=== PATIENT | male | born 1985 | race Caucasian/White ===

== ENCOUNTER 2021-09-09 13:55 | Emergency (ER) | payer OTHER, SELFPAY ==
[2021-09-09 13:58] VITALS: BP 128/74; PULSE 58; RESP 16; TEMP 36.7; O2SAT 98; BMI 24.9
--- NOTE | 2021-09-09 14:14 | ECG_ITS ---
APPROVED REPORT Exam: Resting ECG HR:46 bpm ECG Measurements Heart Rate 46 AXES RI 159 P 42 QRSd 89 QRS 37 QT 420 T 51 QTc [address] ELEVATION, PROBABLY EARLY REPOLARIZATION [ST ELEVATION WITH NORMALLY INFLECTED T-WAVE] BORDERLINE ECG UNCONFIRMED REPORT Electronically signed by : Tristan Pierre MD 09/10/2021 09:03:51
[2021-09-09 14:32] VITALS: BMI 24.9
[2021-09-09 14:44] LABS: Chloride 106 mmol/L (98-107); Potassium 4.5 mmoL/L (3.5-5.1); Sodium 141 mmol/L (136-145)
[2021-09-09 14:47] LABS: Blood Urea Nitrogen 9 mg/dl (9-20); Creatinine Clearance Estimated 140 mL/min (50-200); Estimated Glomerular Filt Rate 97 ml/min (>60); GFR (African American) 117 ML/MIN (>60)
[2021-09-09 14:48] LABS: Anion Gap 7.5 mEq/L (5-15); Calcium 9.5 mg/dl (8.4-10.2); Carbon Dioxide 32 mmol/L (22.0-30.0); Glucose 104 mg/dl (74-100)
--- NOTE | 2021-09-09 15:26 | HMH.EDGENADL ---
ED Disposition Clinical Impression: Abnormal laboratory test result Disposition: Home, Self-Care Condition on Discharge: Good Additional Instructions: Follow-up with primary care provider as needed Referrals: Iftikhar Varela MD [Primary Care Provider] - - Critical Care Critical Care Time: No Attestation: On 09/09/21, the high probability of a clinically significant, sudden or life threatening deterioration of the following system(s) required my full and direct attention, intervention and personal management. The time I documented below is in addition to time spent performing reported procedures but includes the following listed in this critical care notation. Medical Decision Making - Abdon Inquiry Pt receiving controlled substance: No Vital Signs: 09/09/21 13:58 Temperature 98.1 F Temperature Source Oral Pulse Rate [Right Radial] 58 L Respiratory Rate 16 Blood Pressure [Right Arm] 128/74 Blood Pressure Mean [Right Arm] 92 Blood Pressure Source [Right Arm] Automatic Cuff Blood Pressure Position [Right Arm] Sitting 02 Sat by Pulse Oximetry 98 Oxygen Delivery Method Room Air - Lab Data Lab Results 09/09/21 14:25: Sodium 141, Potassium 4.5, Chloride 106, Carbon Dioxide 32 H, Anion Gap 7.5, BUN 9, Creatinine 0.90, Estimated Creat Clear 140, Estimated GFR 97, Est GFR ( Amer) 117, Glucose 104 H, Calcium 9.5 Result diagrams: 09/09/21 14:25 - ECG Data Tracing #1 EKG interpreted by Manjeet Bender MD: Rhythm: sinus rated cardia Rate: 46 [place]: normal Ectopy: none Conduction: normal ST Segment Changes: Early repolarization T Wave Changes: none Q Waves: none No evidence of acute ischemia or injury General Adult HPI - General Chief complaint: Recheck/Abnormal Lab/Rx Stated complaint: elevated levels Time Seen by Provider: 09/09/21 15:26 Mode of Arrival: Ambulatory Limitations: No Limitations Description of Symptoms (Recalled from ER Triage Doc. by RN): pt reports had lab work done 2 days ago, states he was called today notifying of critically high potassium. States he was told to come to the ER. Pt reports feels normaly, no complaints, denies chest pain, SOA, dizziness, pain - History of Present Illness HPI narrative: Patient states that he had blood work drawn 2 days ago at methadone clinic. He was called today and told that his potassium level was high, to come to the emergency room for evaluation. The patient is asymptomatic. No history of chronic kidney disease. He is not on antihypertensives or diuretics. - Related Data Home Medications Medication Instructions Recorded Confirmed No Known Home Medications 05/12/19 05/12/19 Allergies Allergy/AdvReac Type Severity Reaction Status Date / Time SULFA (sulfonamide) Allergy Unknown Uncoded 04/24/17 14:46 [facility] History - Hepatitis A Screen Attestation statement:: This patient has been screened for Hepatitis A risk factors. I have reviewed the patient's past medical history: Yes - Social History Smoking Status: Current every day smoker Tobacco Type: cigarettes # Packs/Day (cigarettes): 1 Alcohol Intake: current Alcohol Intake Frequency:: holidays/special occasions only Substance Use Type: marijuana, crack/cocaine, heroin Occupational Status: unemployed ROS Obtained: Yes Systems reviewed as appropriate & no additional complaints - Constitutional Constitutional: Denies weakness - Cardiovascular Cardiovascular: Denies chest pain, Denies palpitations - Respiratory Respiratory: Denies shortness of breath - Gastrointestinal Gastrointestingal: Denies: abdominal pain, diarrhea, nausea, vomiting - Genitourinary Male Genitourinary: Denies difficulty urinating Physical Exam - General General appearance: alert, in no apparent distress - Head Head exam: atraumatic, normocephalic - Eye Eye exam: Present: normal appearance, EOMI - ENT ENT exam: Present: mucous membranes moist - Neck
[2021-09-09 16:02] VITALS: BP 118/70; PULSE 55; RESP 14; TEMP 36.7; O2SAT 99
== END 2021-09-09 16:02 | disposition home or self-care (01) ==
PROVIDERS: Emergency Provider Emergency Medicine; PCP Family Medicine
DX: R79.9 Abnormal finding of blood chemistry, unspecified (principal); E87.5 Hyperkalemia; Z88.2 Allergy status to sulfonamides; Z72.0 Tobacco use; F14.11 Cocaine abuse, in remission; F12.11 Cannabis abuse, in remission; F11.11 Opioid abuse, in remission
CPT/HCPCS: 80048; 93005; 99282

== ENCOUNTER 2023-05-21 10:12 | Emergency (ER) | payer OTHER, SELFPAY ==
[2023-05-21 10:12] VITALS: BP 123/80; PULSE 89; RESP 16; TEMP 36.5; O2SAT 97; BMI 24.5
--- NOTE | 2023-05-21 10:15 | PC.NURSE ---
PT REFUSES IV , OR ANY BLOOD DRAW . PT REQUEST SOMETHING TO DRINK TO SETTLE HIS STOMACH
--- NOTE | 2023-05-21 10:33 | ED_ITS ---
Discharge Plan Disposition Patient Disposition: Left Against Medical Advice Prescriptions Prescriptions: New naloxone [Narcan] 4 mg/actuation spray,non-aerosol 4 mg intranasal Q2M PRN (Reason: opioid overdose) Qty: 2 0RF Rx Instructions: spray 1 dose into ONE nostril; alternate nostrils w each dose until help arrives Clinical Impressions Clinical Impression: Opiate overdose Discharge ED Provider: Sandra Velez General Adult HPI General Chief complaint: Overdose Stated complaint: overdose Time Seen by Provider: 05/21/23 10:23 Mode of Arrival: EMS Source of Information: Patient and EMS Limitations: No Limitations Description of Symptoms (Recalled from ER Triage Doc. by RN): EMS states the patient was unresponsive upon arrival. States he snorted heroin and there was heroin on the bath tub. Patient is currently alert and oriented. No complaints at this time. Patient refusing IV and bloodwork at this time. History of Present Illness HPI narrative: Patient is a 38-year-old male who presents today after an opiate overdose. Patient has a known history of injection drug use has been tested for HCV and HIV in the past has been negative. States that he had been in senior care for many months and had been clean up until today when he used. His mom who is with him states that she was unable to get him out of the bathroom and when they were able to get the bathroom door opened he had overdosed and was unresponsive. He was given Narcan around and had immediate response is currently alert awake oriented. He tells me that he does not need any additional resources and that he will take care of rehab on his own. He does state that he would like some Narcan to go home with. Related Data Previous Rx's Medication Instructions Recorded naloxone 4 mg/actuation nasal 4 mg intranasal Q2M PRN opioid 05/21/23 spray (Narcan) overdose #2 ea Allergies Allergy/AdvReac Type Severity Reaction Status Date / Time SULFA (sulfonamide) Allergy Unknown Uncoded 04/24/17 14:46 [facility] Disclaimer: The information contained in this section may have been updated after the patient was seen, as this information can be updated by other users. Social History Smoking Status: Unknown if ever smoked alcohol intake: current substance use type: marijuana, crack/cocaine and heroin current occupational status: unemployed Travel in the last 8 weeks: None ROS Obtained: Yes All systems reviewed & no additional complaints except as documented Physical Exam General General appearance: alert Respiratory Respiratory exam: Present normal lung sounds bilaterally Cardiovascular Cardiovascular exam: Present regular rate Neurological Exam Neurological exam: Present alert and oriented X3 Medical Decision Making Abdon Inquiry Pt receiving controlled substance: No Vital Signs: 05/21/23 10:12 Temperature 97.7 F Temperature Source Oral Pulse Rate [Radial] 89 Respiratory Rate 16 Blood Pressure [Right Arm] 123/80 Blood Pressure Mean [Right Arm] 94 Blood Pressure Source [Right Arm] Automatic Cuff Blood Pressure Position [Right Arm] Sitting 02 Sat by Pulse Oximetry 97 Oxygen Delivery Method Room Air Medical Decision Narrative: 38-year-old male present today after an opioid overdose after prolonged incarceration and relapse today. He was unresponsive given Narcan now awake alert and oriented GCS of 15. I typically observe these patients for at least 2 hours to make sure that they have no recurrence of symptoms after the Narcan is worn off but patient refused this and signed out AMA. He understands the risks of leaving abdomen a capacity make this decision risk include disability and which he assumed. Prescription of Narcan was sent to him we will try to get the meds delivered to him at the bedside prior to his departure. Critical Care Critical Care Time Critical Care Time: No
--- NOTE | 2023-05-21 10:33 | PC.NURSE ---
PT WANTS TO SIGN OUT AMA , BUT IS WILLING TO WAIT FOR HIS MEDS TO BE DELIVERED TO THE ER
--- NOTE | 2023-05-21 10:40 | PC.NURSE ---
Spoke with [facility] with [facility]. States they will deliver the narcan to bedside.
--- NOTE | 2023-05-21 10:58 | PC.NURSE ---
Clinic pharmacy delivered meds. Patient stating he is wanting to leave AMA. Refusing all treatments at this time.
[2023-05-21 11:03] VITALS: BP 123/80; PULSE 89; RESP 16; TEMP 36.5; O2SAT 97
== END 2023-05-21 11:04 | disposition left against medical advice (07) ==
PROVIDERS: Emergency Provider Student in an Organized Health Care Education/Training Program
DX: T40.2X1A Poisoning by other opioids, accidental (unintentional), initial encounter (principal)
CPT/HCPCS: 99283